=== PATIENT | male | born 1970 | race Caucasian/White ===

== ENCOUNTER 2023-04-21 21:14 | Observation (INO) | payer SELFPAY ==
[2023-04-21] VITALS (14 sets, daily range): BP systolic 126–137; BP diastolic 83–94; PULSE 53–66; RESP 18–26; TEMP 36.6; O2SAT 93–98; BMI 28.7
--- NOTE | 2023-04-21 21:33 | XR_ITS ---
The [address] [address] Patient Name: MACHELLE RUBY MRN: [id number] date: 1970 Sex: M Assigned Patient Location: ED.MAIN Current Patient Location: ER Accession/Order Number: [id number] Exam Date: 04/21/2023 22:03 Report Date: 04/21/2023 22:53 At the request of: BETTIE VARMA Procedure: XR chest 1V EXAM: XR chest 1V HISTORY: chest pain COMPARISON: Chest radiograph dated 07/19/2020. TECHNIQUE: One view of the chest was obtained. FINDINGS: The cardiac silhouette is normal in size. There is mild linear atelectasis and/or scarring at the left lung base. There is no significant pneumothorax or pleural effusion. No acute osseous abnormality is seen. XR/XR chest 1V IMPRESSION: 1. No acute cardiopulmonary abnormality. Electronically authenticated by: Yaneth MURGUIA Date: 04/21/2023 22:53
--- NOTE | 2023-04-21 21:33 | ECG_ITS ---
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
[2023-04-21 21:51] LABS: Basophils Absolute Auto 0.1 10^3/uL (0.0-0.1); Basophils Percent Auto 1.4 % (0.2-2.0); Eosinophils Absolute Auto 0.4 10^3/uL (0.0-0.7); Eosinophils Percent Auto 6.5 % (0.9-7.0); Hematocrit 45.7 % (42.0-54.0); Hemoglobin 15.9 g/dL (14.0-18.0); Lymphocytes Percent Auto 34.2 % (20.5-60.0); Mean Corpuscular HGB Conc 34.8 g/dL (29.9-35.2); Mean Corpuscular Hemoglobin 30.8 pg (25.9-34.0); Mean Corpuscular Volume 88.4 fL (80.0-94.0); Mean Platelet Volume 9.4 fL (9.5-13.5); Monocytes Absolute Auto 0.5 10^3/uL (0.3-0.8); Monocytes Percent Auto 8.1 % (1.7-12.0); Neutrophils Absolute Auto 2.8 10^3/uL (1.4-6.5); Neutrophils Percent Auto 49.8 % (43.0-75.0); Platelet Count 221 10^3/uL (150-450); Red Blood Count 5.17 10^6/uL (4.70-6.10); Red Cell Distribution Width 11.7 % (11.0-15.0); White Blood Count 5.7 10^3/uL (4.0-11.0)
[2023-04-21 22:06] LABS: Anion Gap 14.9; BUN Creatinine Ratio 12.2; Calcium 8.6 mg/dL (8.5-10.1); Carbon Dioxide 24.7 mmol/L (21.0-32.0); Chloride 103 mmol/L (98-107); Estimated GFR (African America >60 (>=60); Estimated GFR (Non-African Ame >60 (>=60); Glucose 103 mg/dL (74-106); Potassium 3.6 mmol/L (3.5-5.1); Sodium 139 mmol/L (136-145); Troponin I High Sensitivity 14.4 pg/mL (4.0-76.1)
[2023-04-21 22:08] LABS: D Dimer <0.19 mg/L FEU (<=0.59)
--- NOTE | 2023-04-21 23:13 | W.PM.TELEPN ---
Progress Note: Subjective Subjective Interval history: The patient is a 52yo man with a PMHx of Tobacco use and possible small UT when he was 27yo who presented to the ED with chest pain. He states that he has had intermittent short episodes of chest pain for some time now but they have not been that painful so he has ignored them. Yesterday he was sitting down watching TV when he started to have sharp chest pain. He remarked that it was non-radiating and there were no other symptoms like SOB, diaphoresis, nausea, palpitations, fevers, chills. He admits to smoking 1ppd but he is cutting down. He also drinks 6-8 beers daily and denies any history of withdrawals. He also smokes cannabis daily. Exam Constitutional Vital Signs, click to edit/add: Last Vital Signs Temp 97.9 F 04/21/23 21:25 Pulse 56 L 04/21/23 22:00 Resp 23 04/21/23 22:00 BP 137/94 H 04/21/23 21:30 Pulse Ox 93 L 04/21/23 22:00 Common normals: no apparent distress, average body habitus, oriented x3, no limitations, healthy appearing, alert and well nourished [facility] Common normals: normocephalic, head/scalp atraumatic, hearing grossly normal bilaterally and external ears normal Eye Common normals: PERRL and EOMs intact bilaterally Neck & C-Spine Common normals: full ROM and no lymphadenopathy Chest Common normals: inspection of chest normal Respiratory Common normals: normal respiratory effort, no retractions and no use of accessory muscles Effort & inspection: audible wheezes Cardio Common normals: no JVD, regular rate, regular rhythm, S1 normal heart sound, S2 normal heart sound, no gallops, no clicks, no murmurs and peripheral pulses 2+ throughout GI Common normals: Normal to inspection, nondistended, normoactive bowel sounds present, soft to palpation, non-tender, no hepatosplenomegaly and no masses Extremity Common normals: normal to inspection and full ROM Psych Common normals: mental status grossly normal, thought process normal, cooperative, affect normal, speech normal, activity/motor behavior normal, denies hallucinations, denies homicidal ideation and denies suicidal ideation Progress Note: Objective Labs Labs: Short CBC 11/21/23 Range/Units 21:30 WBC 5.7 (4.0-11.0) 10^3/uL Hgb 15.9 (14.0-18.0) g/dL Hct 45.7 (42.0-54.0) % Plt Count 221 (150-450) 10^3/uL BMP 04/21/23 21:30 Sodium 139 Potassium 3.6 Chloride 103 Carbon Dioxide 24.7 BUN 12.0 Creatinine 0.98 Glucose 103 Calcium 8.6 Progress Note: A&P Assessment and Plan (1) Chest pain: Assessment and Plan: The patient presented with chest pain and has a reported history of UT in 1996. His EKG has no ST elevations, his troponin is negative. - observation status - c/w telemetry - trend troponin - c/w aspirin - echo stress test in AM - check lipid panel (2) Tobacco abuse: Assessment and Plan: - nicotine patch - cessation advice given (3) Alcohol abuse: Assessment and Plan: He admits to drinking 6-8 beers daily. - watch for possible withdrawals Telemedicine Attestation Telemedicine Attestation I conducted this encounter from [place] via secure live, [id number] video conference with the patient, located at [facility] with Colette. Prior to the interview, the risks and benefits of telemedicine were discussed with the patient and verbal consent was obtained.
[2023-04-22] VITALS (8 sets, daily range): BP systolic 133; BP diastolic 86; PULSE 56–75; RESP 1; TEMP 36.8; O2SAT 63–93; BMI 26.0
[2023-04-22] MEDS: ASPIRIN 81 MG TAB.CHEW PO (05:18)
[2023-04-22 05:36] LABS: Basophils Absolute Auto 0.1 10^3/uL (0.0-0.1); Eosinophils Absolute Auto 0.4 10^3/uL (0.0-0.7); Hematocrit 45.4 % (42.0-54.0); Hemoglobin 15.3 g/dL (14.0-18.0); Immature Granulocytes Abs Auto 0.01 10^3/uL (0.00-0.03); Immature Granulocytes Pct Auto 0.2 % (0.0-0.5); Lymphocytes Absolute Auto 1.4 10^3/uL (1.2-3.8); Mean Corpuscular HGB Conc 33.7 g/dL (29.9-35.2); Mean Corpuscular Hemoglobin 30.2 pg (25.9-34.0); Mean Corpuscular Volume 89.5 fL (80.0-94.0); Mean Platelet Volume 9.8 fL (9.5-13.5); Monocytes Absolute Auto 0.6 10^3/uL (0.3-0.8); Neutrophils Absolute Auto 2.3 10^3/uL (1.4-6.5); Neutrophils Percent Auto 47.8 % (43.0-75.0); Platelet Count 190 10^3/uL (150-450); Red Blood Count 5.07 10^6/uL (4.70-6.10); Red Cell Distribution Width 11.9 % (11.0-15.0); White Blood Count 4.8 10^3/uL (4.0-11.0)
[2023-04-22 05:48] LABS: Anion Gap 11.1; Calcium 8.5 mg/dL (8.5-10.1); Carbon Dioxide 27.9 mmol/L (21.0-32.0); Chloride 105 mmol/L (98-107); Estimated GFR (African America >60 (>=60); Estimated GFR (Non-African Ame >60 (>=60); Glucose 98 mg/dL (74-106); Magnesium 2.1 mg/dL (1.8-2.4); Sodium 140 mmol/L (136-145)
[2023-04-22 06:05] LABS: Troponin I High Sensitivity 14.4 pg/mL (4.0-76.1)
--- NOTE | 2023-04-22 07:41 | CA_ITS ---
Patient Name Site Name MACHELLE RUBY The [facility] No Medical Record Number Age Sex Date Time [id number] [facility]:[id number] 52 M 04/22/2023 09:01 At the Request Of Milana Ware ECHOCARDIOGRAM REPORT PROCEDURE: CA ECHO DOPPLER COMPLETE INDICATIONS: Chest pain COMPARISON: None. DESCRIPTION: COMPLETE ECHOCARDIOGRAM Real-time transthoracic echocardiography with 2D, M-mode, spectral and color flow Doppler performed. QUALITY: Technical quality was good. LEFT VENTRICLE: Normal chamber size. Mild concentric left ventricular hypertrophy. Global left ventricular systolic function is normal. LV EF: Visual estimation of left ventricular ejection fraction is 55% DIASTOLIC: Normal diastolic function. ATRIAL SEPTUM: LEFT ATRIUM: Normal chamber size. RIGHT ATRIUM: Normal chamber size. RIGHT VENTRICLE: Normal chamber size. Normal right ventricular systolic function. TRICUSPID VALVE: Normal mobility and thickness. No stenosis with trivial regurgitation. No evidence of pulmonary hypertension. RVSP 32 mmHg MITRAL VALVE: Normal mobility and thickness. No evidence of mitral valve stenosis. There is no mitral annular calcification. Trivial mitral regurgitation. AORTIC VALVE: Normal trileaflet appearance. No visible sclerosis. Normal leaflet mobility. No evidence of aortic valve stenosis. No aortic regurgitation. AORTIC ROOT: Normal diameter and appearance. PULMONIC VALVE: Normal thickness and mobility. No stenosis. No regurgitation. PERICARDIUM: No evidence of pericardial effusion. IVC: Collapses with inspirations. Normal size. PLEURA: CONCLUSION: 1. Mild concentric left ventricular hypertrophy with normal systolic function. LVEF is 55%. 2. Normal right ventricular size and systolic function. 3. Normal diastolic function. 4. No significant valvular dysfunction. 5. Normal right-sided pressures. 6. No pericardial effusion. Adult Echocardiography Procedure Report Left Ventricle LVEDD (3.7 - 5.6 cm): 5.47 cm LVESD (2.2 - 4.0 cm): 3.98 cm LVIVS thickness (0.6 - 1.2 cm): 1.29 cm LVPW thickness (0.5 - 1.0 cm): 1.14 cm e': 0.09 m/s E - e': 6.62 LVOT Max Gradient: 3.41 mm[Hg] LVOT Area (cm2): 0.92 m/s Peak Velocity (LVOT): 0.92 m/s Mean Velocity (LVOT): 0.63 m/s LVOT Diameter 2.32 cm Left Ventricular Ejection Fraction: 55.85 % Left Atrium LA Volume Index (2D A2C): 37.96 ml/m2 Left Atrium Systolic Dimension: 4.11 cm Mitral Valve MV E to A Ratio: 0.82 Mitral Valve A-Wave Peak Velocity: 0.75 m/s Mitral Valve E-Wave Peak Velocity: 0.61 m/s Right Ventricle RV Internal Diastolic Dimension: 3.52 cm Aorta AO Root Diam: 3.29 cm Ascending Ao Diam: 3.26 cm Aortic Valve AoV Area (Peak Himanshu): 2.60 cm2, 2.60 cm2 AoV Area (VTI): 2.44 cm2, 2.44 cm2 Peak Velocity(Antegrade Flow): 1.50 m/s Peak Gradient(Antegrade Flow): 8.95 mm[Hg] Mean Velocity(Antegrade Flow): 0.99 m/s Mean Gradient(Antegrade Flow): 4.63 mm[Hg] Velocity Time Integral: 34.61 cm Tricuspid Valve Peak Velocity (Regurgitant Flow): 2.39 m/s, 2.68 m/s, 2.51 m/s Pulmonic Valve Mean Gradient: 2.11 mm[Hg] Mean Velocity: 0.68 m/s Peak Velocity: 0.98 m/s, 1.04 m/s Peak Gradient: 4.35 mm[Hg], 3.87 mm[Hg] Right Atrium Right Atrium Systolic Pressure: 58.26 ml, 58.26 ml Dictated by: Regino Baires M.D. on 04/22/2023 at 18:27 Approved by: Regino Baires M.D. on 04/22/2023 at 18:30
[2023-04-22 08:23] LABS: Troponin I High Sensitivity 14.4 pg/mL (4.0-76.1)
--- NOTE | 2023-04-22 08:52 | CM.NOTE ---
Patient requested to speak w someone regarding his self pay status. Spoke to financial counselor, Amy and someone will reach out to him.
--- NOTE | 2023-04-22 09:18 | CM.NOTE ---
Spoke with Jerald regarding insurance. At this time he has no insurance benefits. Patient Financial Services to speak with Mr. Woodward.
[2023-04-22] MEDS: THIAMINE MONONITRATE (VIT B1) 100 MG TABLET PO (10:07)
[2023-04-22] MEDS: MULTIVITAMIN TABLET 1 TAB PO (10:07)
[2023-04-22] MEDS: FOLIC ACID 1 MG TABLET PO (10:08)
--- NOTE | 2023-04-22 12:20 | P.HP_ITS ---
Brief with input and findings and history from nurse practitioner. Patient was up in chair talking. Without issue. Ambulated in room without issue. Echocardiogram reviewed. Patient is stable for discharge to home with follow-up with PCP for outpatient stress testing H&P: HPI History of Present Illness Chief complaint: ATYPICAL CHEST PAIN Narrative: SHORT STAY SUMMARY Date/time of exam 04/22/23 7341 This is a 52-year-old male patient with a past medical history including chronic tobacco dependence and EtOH abuse, with only significant past medical history including reported mild heart attack approximately 25 years ago. The patient does not take any home medications at baseline. He reported to the ED yesterday evening complaining of an episode of chest pain that had resolved. He reports intermittent left distal chest wall/epigastric discomfort over the last 2 weeks. He had a brief episode around 8:00 last night that was sharp and intense but self resolved and he was able to fall asleep. He woke up about an hour later and decided to present to the ED regarding his chest discomfort which had already resolved. Work-up in the ED was benign with negative troponins x2 and EKG without evidence of acute ischemic changes. All his labs were WNL. He was admitted to [facility] for further cardiac monitoring. This morning the patient is sitting up in bed and continues to report that his chest pain is completely resolved. He describes the pain as sharp, without r adiation, palpitations, pleuritic pain, or associated dizziness, SOB, diaphoresis or nausea. He reports that it may have been gas as he frequently has gas pain discomfort in his abdomen and the location of his pain was the distal left chest wall/epigastric area. He also reports eating a lot of salt and greasy food which may have contributed to dyspepsia. Serial cardiac enzymes have remained completely negative and a 2D echo obtained this morning, although official cardiology report is still pending, did not evidence any significant finding on preliminary report. As the patient's chest pain is completely resolved and our work-up today has been negative he is being discharged home in stable condition. He should follow-up with his PCP in 3 to 5 days and an outpatient stress test should be considered in light of his reported cardiac history. Review of Systems ROS Status of ROS 10 or more systems reviewed and unremarkable except as noted in history and below [facility] Medical History (Updated 04/22/23 @ 12:18 by Milana Ware NP) Alcohol abuse ?F10.10 - Alcohol abuse, uncomplicated (ICD-10) Heart attack ?I21.9 - Acute myocardial infarction, unspecified (ICD-10) Tobacco abuse ?Z72.0 - Tobacco use (ICD-10) Family History (Updated 04/22/23 @ 00:33 by Colette Arevalo RN) Mother Family history of myocardial infarction Family history of CHF (congestive heart failure) Family history of hypertension Family history of stroke Social History (Updated 04/22/23 @ 00:36 by Colette Arevalo RN) Within the past year, how often did you have a drink containing alcohol: 4 or more times a week Within the past year, how many standard drinks containing alcohol did you have on a typical day: 5 or 6 Within the past year, how often did you have six or more drinks on one occasion: monthly Total score: 6 Score interpretation: A score of 4 or more indicates drinking is likely to affect patient's safety. Smoking status: Current every day smoker Non-prescribed substance use: cannabis (any form) Previous occupational history: factory Known occupational exposures/hazards details: chemical dust Highest level of school completed/degree received: 10th grade Are you now , , , , never or living with a partner: living with partner In a typical week, how many times do you talk on the telephone with family, friends, or neighbors: 3 or more times per week How often do you get together with friends or relatives: once per week How often do you attend uatsdin or pentecostal services: never Do you belong to any clubs or organizations such as uatsdin groups unions, fraternal or athletic groups, or school groups: no Total score: 2 Score interpretation: A score of greater than or equal to 2 indicates the lowest level of social isolation. Little interest or pleasure in doing things: not at all Feeling down, depressed, or hopeless: not at all Feel stressed/tense/nervous/anxious/difficulty sleeping: not at all Gender Identity: male Meds Home Medications and Allergies Allergies Allergy/AdvReac Type Severity Reaction Status Date / Time No Known Drug Allergies Allergy Verified 04/21/23 21:32 Exam Constitutional Vital Signs, click to edit/add: Last Vital Signs Temp 98.3 F 04/22/23 00:40 Pulse 61 04/22/23 10:00 Resp 1 L 04/22/23 00:40 BP 133/86 04/22/23 00:40 Pulse Ox 93 L 04/22/23 00:40 O2 Del Method Room Air 04/22/23 00:40 Common normals: no apparent distress, oriented x3, alert and well nourished General appearance: cooperative Orientation/consciousness: Yes awake [place] Common normals: normocephalic, head/scalp atraumatic, hearing grossly normal bilaterally, external nose normal and moist oral mucous membranes Eye Common normals: PERRL, EOMs intact bilaterally, conjunctivae normal and no scleral icterus Alignment: alignment normal Eyelid: eyelids normal Neck & C-Spine Common normals: full ROM, supple and no JVD Chest Common normals: inspection of chest normal Chest: symmetrical chest wall rise Respiratory Common normals: normal respiratory effort, no retractions, no use of accessory muscles and clear to auscultation bilaterally Effort & inspection: able to speak in complete sentences Cardio Common normals: no JVD, regular rate, regular rhythm, S1 normal heart sound, S2 normal heart sound, no gallops, no clicks, no murmurs, no rub and peripheral pulses 2+ throughout GI Common normals: Normal to inspection, nondistended, normoactive bowel sounds present, soft to palpation, non-tender, no hepatosplenomegaly, no masses and no bruits Bladder/kidney exam: bladder normal to palpation Back & Pelvis Common normals: thoracic and lumbar spine normal to inspection Extremity Common normals: normal capillary refill and no pedal edema General: normal exam except as noted; no clubbing and no cyanosis Neuro Cristina Coma Scale: GCS not evaluated Common normals: CN's II-XII intact bilaterally, moves all extremities, no focal motor deficits and no sensory deficits noted Speech: speech normal Psych Common normals: mental status grossly normal, thought process normal, affect normal and activity/motor behavior normal Results Labs Labs: Short CBC 04/21/23 04/22/23 Range/Units 21:30 04:52 WBC 5.7 4.8 (4.0-11.0) 10^3/uL Hgb 15.9 15.3 (14.0-18.0) g/dL Hct 45.7 45.4 (42.0-54.0) % Plt Count 221 190 (150-450) 10^3/uL BMP 04/21/23 04/22/23 21:30 04:52 Sodium 139 140 Potassium 3.6 4.0 Chloride 103 105 Carbon Dioxide 24.7 27.9 BUN 12.0 13.0 Creatinine 0.98 1.00 Glucose 103 98 Calcium 8.6 8.5 Laboratory Tests 04/21/23 04/22/23 04/22/23 21:30 04:52 08:00 Troponin I High Sens 14.4 14.4 14.4 Pulse Oximetry Attestation: I have reviewed the pertinent pulse oximetry results. ECG Interpretation: Interpretive Statements 1100 Sinus rhythm 2440 Incomplete right bundle branch block 9130 borderline ECG No previous ECG available for comparison Imaging Chest x-ray: Attestation: I have reviewed the pertinent imaging results. Radiologist's impression: IMPRESSION: 1. No acute cardiopulmonary abnormality. Assessment and Plan Assessment and Plan (1) Atypical chest pain: Assessment and Plan: SUBACUTE/RESOLVED * Atypical pain, likely dyspepsia or GERD based on presentation, but remote reported cardiac history * Resolved * Serial cardiac enzymes - neg x 3 * EKG - no acute ischemic changes * 2D Echo to r/o WM, CHF, or valvular abnormalities * Official cardiac read pending - prelim report unremarkable * D/C home - follow up w/ PCP and consider outpatient stress testing (2) Tobacco abuse: Assessment and Plan: CHRONIC * Advised tobacco and marijuana cessation (3) Alcohol abuse: Assessment and Plan: CHRONIC * Advised significant reduction in daily EtOH use - limit 2-3 per day at most
== END 2023-04-22 12:42 | disposition home or self-care (01) ==
LOC: ER 23:15 → MS 04-22 00:17
PROVIDERS: Internal Medicine; Admitting Provider Family Medicine; Emergency Provider Internal Medicine; Visit Provider Nurse Practitioner
DX: R07.89 Other chest pain (principal); I25.2 Old myocardial infarction; F10.10 Alcohol abuse, uncomplicated; F17.210 Nicotine dependence, cigarettes, uncomplicated
CPT/HCPCS: 36415; 71045; 80048; 83735; 84484; 85025; 85378; 93005; 93306; 99285; G0378

== ENCOUNTER 2024-08-13 22:43 | Emergency (ER) | payer SELFPAY ==
[2024-08-13] VITALS (10 sets, daily range): BP systolic 129–172; BP diastolic 84–113; PULSE 55–64; TEMP 36.4; O2SAT 93–98; BMI 25.5
--- OUTSIDE RECORDS SUMMARY | 2024-08-13 22:48 | XMS_ITS | CCD ---
Author Organization [facility] Inform ion Partnership [facility] Care Team Providers Care Traffic Checker Name Role Phone TAYLOR KESSLER Admitting Unavailable MISC, DOCTOR Primary Care Unavailable TIMOTHY BASSETT Consulting Unavailable TAYLOR KESSLER Attending Unavailable Julio Alex Consulting Unavailable TAYLOR KESSLER Attending Unavailable TAYLOR KESSLER Consulting Unavailable TAYLOR KESSLER Admitting Unavailable MISC, DOCTOR Primary Care Unavailable JERAD CABRERA Consulting Unavailable Darlyn Jeffrey Unavailable No Pcp, No Pcp Primary Care Provider Unavailabl e Medications Current Medications Medication Drug Class(es) Dates Sig (Normalized) Sig (Original) clotrimazole 10 mg/ml topical cream (1 source) Azole Antifungal Start: 08-20-2023 Clotrimazole Active 1 APPLIC TOPICAL Twice daily 30 August 20, 2023 12:00am Problems Active Problems Problem Classification Problem Date Documented Da te Episodic/Chronic Conditions associated with dizziness or vertigo (5 sources) Dizziness and giddiness; Translations: [Labyrinthitis, unspecified ear] Onset: 07-19-2020 Episodic Substance-related disorders (1 source) Nicotine dependence, cigarettes, uncomplicated; Translations: [NICOTINE DEPEND CIGARETTES UNCOMP] Onset: 07-23-2020 Chronic Past or Other Problems Problem Classification Problem Date Documented Da te Episodic/Chronic Immunizations and screening for infectious disease (1 source) Contact with and (suspected) exposure to other viral communicable diseases; Translations: [Contact with and (suspected) exposure to other viral communicable diseases Z20.828] Onset: 03-13-2021 Resolved: 03-13-2021 Episodic Other connective tissue disease (1 source) Olecranon bursitis, right elbow; Translations: [OLECRANON BURSITIS RIGHT ELBOW] Onset: 12-19-2019 Episodic Other non-traumatic joint disorders (3 sources) Effusion, right elbow; Translations: [EFFUSION RIGHT ELBOW] Onset: 12-15-2019 Episodic Viral infection (1 source) COVID-19; Translations: [COVID-19 U07.1] Onset: 03-13-2021 Resolved: 03-13-2021 Results Test Name Value Interpretation Reference Range Facility COVID Quick Testingon 2020 Result Positive [facility] Other CARDIAC TAYLOR ADMITon 021 CK [Catalytic activity/Vol] 148 U/L Normal 55-170 [facility] Comment on above: Performed By: #### C LYNDON, CMP #### [facility] [address] [place], [place] [address] Prabha Roz CK.MB [Mass/Vol] 3.41 ng/mL Critically high <=2.37 [facility] Comment on above: Result Comment: test repeated critical value verified Performed By: #### C LYNDON, CMP #### [facility] [address] [place], [place] [id number] Parbha Roz HSTROP 25.5 pg/mL Normal 4.0-42.2 [facility] Comment on above: Result Comment: CUT- OFF POINTS HAVE BEEN ESTABLISHED BASED ON THE FOURTH UNIVERSAL DEFINITIONS OF MYOCARDIAL INFARCTION. THE UPPER REFERENCE LIMIT (URL) OF TROPONIN, DEFINED THE 99TH PERCENTILE OF cTnI DISTRIBUTION IN A REFERENCE POPULATION, HAS BEEN CONFIRMED THE DECISION THRESHOLD FOR TX DIAGNOSIS. Performed By: #### C LYNDON, CMP #### [facility] [address] [place], [place] [address] Prabha Roz NICOLE 68.0 ng/mL Normal <=121.0 [facility] Comment on above: Performed By: #### C LYNDON, CMP #### [facility] [address] [place], [place] [address] Prabha Roz CBC AUTO DIFFon 07-19-2020 Basophils (Bld) [#/Vol] 0.1 103/ul Normal 0.0-0.1 [facility] Comment on above: Performed By: #### C BC #### [facility] [address] [place], [place] [address] Prabha Roz Basophils/100 WBC (Bld) 0.9 % Normal 0.2-2.0 [facility] Comment on above: Performed By: #### C BC #### [facility] [address] [place] [address] Prabha Roz Eosinophils (Bld) [#/Vol] 0.2 103/ul Normal 0.0-0.7 [facility] Comment on above: Performed By: #### C BC #### [facility] [address] [place], [place] [phone] Prabha Roz Eosinophils/100 WBC (Bld) 3.1 % Normal 0.9-7.0 [facility] Comment on above: Performed By: #### C BC #### [facility] [address] [place] [address] Prabha Roz Erythrocyte distribution width (RBC) [Ratio] 11.4 % Normal 11.0-15.0 [facility] Comment on above: Performed By: #### C BC #### [facility] [address] [place] [address] Prabha Roz Hematocrit (Bld) [Volume fraction] 44.5 % Normal 42.0-54.0 [facility] Comment on above: Performed By: #### C BC #### [facility] [address] [place] [address] Prabha Roz Hemoglobin (Bld) [Mass/Vol] 15.7 g/dL Normal 14.0-18.0 [facility] Comment on above: Performed By: #### C BC #### [facility] [address] [place] [address] Prabha Roz IG # 0.01 10e3/ul Normal 0.00-0.03 [facility] Comment on above: Performed By: #### C BC #### [facility] [address] [place] [address] Prabha Roz IG % 0.1 % Normal 0.0-0.5 [facility] Comment on above: Performed By: #### C BC #### [facility] [address] [place], [place] [phone] Prabha Roz Lymphocytes (Bld) [#/Vol] 1.2 103/ul Normal 1.2-3.8 [facility] Comment on above: Performed By: #### C BC #### [facility] [address] [place], [place] [address] Prabha Roz Lymphocytes/100 WBC (Bld) 17.3 % Critically low 20.5-60.0 [facility] Comment on above: Performed By: #### C BC #### [facility] [address] [place], [place] [address] Prabha Roz MANUAL DIFF REQ NO Normal [facility] Comment on above: Performed By: #### C BC #### [facility] [address] [place], [place] [address] Prabha Roz MCH (RBC) [Entitic mass] 30.6 pg Normal 25.9-34.0 [facility] Comment on above: Performed By: #### C BC #### [facility] [address] [place], [place] [phone] Prabha Roz MCHC (RBC) [Mass/Vol] 35.3 g/dL Critically high 29.9-35.2 [facility] Comment on above: Performed By: #### C BC #### [facility] [address] [place] [address] Prabha Roz MCV (RBC) [Entitic vol] 86.7 fL Normal 80.0-94.0 [facility] Comment on above: Performed By: #### C BC #### [facility] [address] [place] [address] Prabha Roz Monocytes (Bld) [#/Vol] 0.7 103/ul Normal 0.3-0.8 [facility] Comment on above: Performed By: #### C BC #### [facility] [address] [place], [place] [address] Prabha Roz Monocytes/100 WBC (Bld) 10.2 % Normal 1.7-12.0 [facility] Comment on above: Performed By: #### C BC #### [facility] [address] [place], [place] [address] Prabha Roz Neutrophils (Bld) [#/Vol] 4.8 103/ul Normal 1.4-6.5 [facility] Comment on above: Performed By: #### C BC #### [facility] [address] [place], [place] [address] Prabha Courtney Neutrophils/100 WBC (Bld) 68.4 % Normal 43.0-75.0 [facility] Comment on above: Performed By: #### C BC #### [facility] [address] [place], [place] [address] Prabhakamar Courtney Platelet mean volume (Bld) [Entitic vol] 9.6 fL Normal 9.5-13.5 [facility] Comment on above: Performed By: #### C BC #### [facility] [address] [place] [address] Prabhakamar Courtney Platelets (Bld) [#/Vol] 237 103/ul Normal 150-450 [facility] Comment on above: Performed By: #### C BC #### [facility] [address] [place] [address] Prabha Courtney RBC (Bld) [#/Vol] 5.13 106/ul Normal 4.70-6.10 [facility] Comment on above: Performed By: #### C BC #### [facility] [address] [place] [address] Prabha Courtney WBC (Bld) [#/Vol] 7.0 103/ul Normal 4.0-11.0 [facility] Comment on above: Performed By: #### C BC #### [facility] [address] [place] [address] HEAD WO CONon 07-19-[address] CT HEAD WO CON CT BRAIN WITHOUT CONTRAST HISTORY: BENIGN PAROXYSMAL VERTIGO, UNSPECIFIED EAR. COMPARISON: None available. TECHNIQUE: Helical CT images were acquired from the skull base to the vertex without the use of intravenous contrast. Dose reduction techniques were achieved by using automated exposure control and/or adjustment of mA and/or kV according to patient size and/or use of iterative reconstruction technique. FINDINGS: BRAIN PARENCHYMA/CSF SPACES: Ventricles are normal in size for age. There is no hemorrhage, mass effect or midline shift. There are no other significant findings. PARANASAL SINUSES: Clear. SKULL BASE AND CALVARIUM: Normal. EXTRACRANIAL SOFT TISSUES: Normal. IMPRESSION: Normal noncontrast CT brain. Electronically authenticated by: JERAD CABRERA Date: 2020-07-19 00:54 Normal [facility] PROF 14(COMP METB)on 021 Albumin [Mass/Vol] 4.1 g/dL Normal 3.5-5.0 [facility] Comment on above: Performed By: #### Lupillo HANEY, CMP #### [facility] [address] [place] [id number] Prabha Roz Albumin/Globulin [Mass ratio] 1.4 {ratio} Normal [facility] Comment on above: Performed By: #### Lupillo HANEY, CMP #### [facility] [address] [place] [id number] Prabha Roz ALP [Catalytic activity/Vol] 99 U/L Normal 38-126 [facility] Comment on above: Performed By: #### Lupillo HANEY, CMP #### [facility] [address] [place] [phone] Prabha Roz ALT [Catalytic activity/Vol] 33 U/L Normal 21-72 [facility] Comment on above: Performed By: #### Lupillo HANEY, CMP #### [facility] [address] [place] [phone] Prabha Roz Anion gap [Moles/Vol] 11.6 mmol/L Normal [facility] Comment on above: Performed By: #### Lupillo HANEY, CMP #### [facility] [address] [place] [phone] Prabha Roz AST [Catalytic activity/Vol] 20 U/L Normal 17-59 [facility] Comment on above: Performed By: #### Lupillo HANEY, CMP #### [facility] [address] [place] [phone] Prabha Roz Bilirubin Ql (U) 0.4 mg/dL Normal 0.2-1.3 [facility] Comment on above: Performed By: #### Lupillo HANEY, CMP #### [facility] [address] [place] [id number] Prabha Roz Calcium [Mass/Vol] 9.2 mg/dL Normal 8.4-10.2 [facility] Comment on above: Performed By: #### C LYNDON, CMP #### [facility] [address] [place] [address] Prabha Roz Chloride [Moles/Vol] 106 mmol/L Normal 98-107 [facility] Comment on above: Performed By: #### C LYNDON, CMP #### [facility] [address] [place] [address] Prabha Roz CO2 [Moles/Vol] 27.4 mmol/L Normal 22.0-30.0 [facility] Comment on above: Performed By: #### C LYNDON, CMP #### [facility] [address] [place] [address] Prabha Roz Creatinine [Mass/Vol] 0.95 mg/dL Normal 0.66-1.25 [facility] Comment on above: Performed By: #### C LYNDON, CMP #### [facility] [address] [place] [address] Prabha Roz EGFR-AF [place]IZ[place] >60 Normal >=60 [facility] Comment on above: Performed By: #### C LYNDON, CMP #### [facility] [address] [place] [address] Prabha Roz EGFR-NON AF [place]IZ[place] >60 Normal >=60 [facility] Comment on above: Performed By: #### C LYNDON, CMP #### [facility] [address] [place] [address] Prabha Roz Globulin (S) [Mass/Vol] 2.9 g/dL Normal [facility] Comment on above: Performed By: #### C LYNDON, CMP #### [facility] [address] [place] [address] Prabha Roz Glucose [Mass/Vol] 112 mg/dL Critically high 74-106 [facility] Comment on above: Performed By: #### C LYNDON, CMP #### [facility] [address] [place] [address] Prabha Roz Potassium [Moles/Vol] 4.0 mmol/L Normal 3.4-5.0 [facility] Comment on above: Performed By: #### C MADM, CMP #### [facility] [address] [place] [id number] Prabha Roz Protein [Mass/Vol] 7.0 g/dL Normal 6.1-8.2 [facility] Comment on above: Performed By: #### C MADM, CMP #### [facility] [address] [place] [id number] Prabha Roz Sodium [Moles/Vol] 141 mmol/L Normal 137-145 [facility] Comment on above: Performed By: #### C MADM, CMP #### [facility] [address] [place] [id number] Prabha Roz Urea nitrogen [Mass/Vol] 14.0 mg/dL Normal 9.0-20.0 [facility] Comment on above: Performed By: #### C NIKITAM, CMP #### [facility] [address] [place], [place] [phone] Prabha Roz Urea nitrogen/Creatinin e [Mass ratio] 14.7 mg/mg Normal [facility] Comment on above: Performed By: #### C MADM, CMP #### [facility] [address] [place], [place] [phone] Prabha Roz TROPONIN, HIGH SENSITIVITYon 07-19-2020 HSTROP 21.8 pg/mL Normal 4.0-42.2 [facility] Comment on above: Result Comment: CUT- OFF POINTS HAVE BEEN ESTABLISHED BASED ON THE FOURTH UNIVERSAL DEFINITIONS OF MYOCARDIAL INFARCTION. THE UPPER REFERENCE LIMIT (URL) OF TROPONIN, DEFINED THE 99TH PERCENTILE OF cTnI DISTRIBUTION IN A REFERENCE POPULATION, HAS BEEN CONFIRMED THE DECISION THRESHOLD FOR TX DIAGNOSIS. Performed By: #### H STROPN #### [facility] [address] [place], [place] [phone] Prabha Roz XR CHEST 1 Von 07-19-2020 XR CHEST 1 V CHEST RADIOGRAPH: HISTORY: CHEST PAIN, UNSPECIFIED. COMPARISON: CT chest 08/31/18. TECHNIQUE: AP radiograph of was performed of the chest. FINDINGS: SUPPORT APPARATUS/POST-SURGI OUSMANE CHANGES: None. CARDIOMEDIASTINAL SILHOUETTE: Normal. AIRWAYS/LUNGS: Normal. PLEURAL SPACES: No pleural effusion or pneumothorax. BONES AND SOFT TISSUES: Mild dextroscoliosis of the thoracic spine. IMPRESSION: No acute cardiopulmonary process. Electronically authenticated by: JERAD CABRERA Date: 2020-07-19 00:31 Normal [facility] XR ELBOW RT MIN 3 VIEWSon XR ELBOW RT MIN 3 VIEWS EXAM: Right elbow HISTORY: Pain and swelling. TECHNIQUE: 3 views of the right elbow were obtained. FINDINGS: There is no evidence of fracture or dislocation. There are no suspicious bone lesions. The lateral view shows a tug enthesophyte at the insertion of the triceps tendon on the posterior olecranon. There is associated soft tissue thickening and swelling. Soft tissues are otherwise normal. IMPRESSION: No acute findings. Evidence of prior triceps tendinosis with associated overlying soft tissue thickening and swelling. Electronically authenticated by: JULIO ALEX Date: 2019-12-15 20:26 Normal [facility] Vital Signs Date Time Vital Sign Value Performing Clinician Facility 08-20-2023 18:13-0400 Body height 172.72 cm [facility] 08-20-2023 18:13-0400 Body mass index (BMI) [Ratio] 26.1 kg/m2 [facility] 08-20-2023 18:13-0400 Body temperature 98.2 [degF] [facility] 08-20-2023 18:13-0400 Body weight 78.01 kg [facility] 08-20-2023 18:13-0400 Heart rate 65 /min [facility] 08-20-2023 18:13-0400 Respiratory rate 18 /min [facility] 08-20-2023 18:13-0400 SaO2% (BldA) [Mass fraction] 97 % [facility] 03-13-2021 16:45-0400 Body height 172.72 cm Darlyn Jeffrey Other [facility] 03-13-2021 16:45-0400 Body mass index (BMI) [Ratio] 27.37 kg/m2 Darlyn Jeffrey Other [facility] 03-13-2021 16:45-0400 Body temperature 98.7 [degF] Darlyn Jeffrey Other [facility] 03-13-2021 16:45-0400 Body weight 81.65 kg Darlyn Jeffrey Other [facility] Other 03-13-2021 16:45-0400 Respiratory rate 18 /min Darlyn Jeffrey Other [facility] Other 03-13-2021 16:45-0400 SaO2% (BldA) [Mass fraction] 98 % Darlyn Jeffrey Other [facility] Other Encounters Encounter Date Encounter Type Care Provider Facility Start: 09-23-2023 End: 09-23-2023 Telephone encounter Catie Latham CMA [facility] Comment on above: Attribution Outreach Start: 08-20-2023 End: 08-20-2023 ambulatory [facility] Work Phone: Start: 08-20-2023 End: 08-20-2023 Patient encounter procedure [facility] Work Phone: Start: 03-13-2021 (URG) Urgent Care Visit Darlyn veliz [facility] Start: 07-19-2020 End: 07-19-2020 Patient encounter procedure TAYLOR KESSLER Facility:[facility] Start: 12-15-2019 End: 12-15-2019 Patient encounter procedure TAYLOR KESSLER Facility:[facility] Plan of Treatment Date Care Activity Detail Author [facility] Payers Date Payer Category Payer Unknown [employer] CHERRIE MONTERROSO [id number] 2017-Present [phone] [address] [place] [address] [id number] 1972 Unknown [id number] 1972 Unknown [id number] 1957 Self-pay Unknown [id number] Social History Date Type Detail Facility Start: 11-10-2018 End: 07-12-2020 Sex Assigned At [facility] Other Start: 08-20-2023 Tobacco smoking status [facility] Smoker (finding) [facility] Start: 1970 Sex Assigned At Male [facility] Tobacco smoking status [facility] Tobacco smoking consumption unknown [facility] Start: 11-10-2018 End: 07-12-2020 History of Social function [facility] Childcare Unknown [facility] Start: 1970 Sex assigned at Not on file P [facility] Note 09-23-2023 Telephone Encounter - Catie Latham CMA - 09/23/2023 11:17 AM EDT Note Date & Type Note Facility 09-23-2023 Miscellaneous Notes Formattin g of this note might be different from the original. EMPANELMENT OUTREACH Jerald Woodward has been contacted in effort to establish and/or re-establish care as a new patient with [facility]: Yes Outreach Date: September 23, 2023 Outreach Reason: Attribution Outreach Method: Telephone Outreach Attempt: First Attempt Outreach Outcome: Invalid Number New Patient Appointment: NA Attributed Provider: Jael Aguilar CNP Additional Comments: PCP is accepting new patients. Unable to reach patient. Letter sent regarding how to establish care. documented in this encounter [facility] Telephone encounter Note 09-23-2023 Telephone Encounter - Catie Latham CMA - 09/23/2023 11:17 AM EDT Note Date & Type Note Facility 09-23-2023 Telephone encount er Note EMPANELMENT OUTREACH Jerald Woodwrad has been contacted in effort to establish and/or re-establish care as a [facility]: Yes Outreach Date: September 23, 2023 Outreach Reason: Attribution Outreach Method: Telephone Outreach Attempt: First Attempt Outreach Outcome: Invalid Number New Patient Appointment: NA Attributed Provider: Jael Aguilar CNP Additional Comments: PCP is accepting new patients. Unable to reach patient. Letter sent regarding how to establish care. [facility] Evaluation note 03-13-2021 Note Date & Type Note Facility 03-13-2021 Evaluation note Encounter Date Diagnosis Assessment Notes Mar, Contact with and (suspected) exposure to other viral communicable diseases (ICD-10 - Z20.828) Mar, COVID-19 (ICD-10 - U07.1) Drink plenty fluids, get plenty of rest. Stop smoking. Take Tylenol or Motrin as needed for aches pains or fevers. You must self isolate for 10 days after the onset of your symptoms. Follow-up with family physician if no improvement in 2 to 3 days. Mar, Other Additional time spent conducting pre-visit phone call, screening for symptoms, instructions on social distancing, application and removal of PPE, and cleaning of examination room, equipment and supplies was preformed. Patient education given for testing methodology and results. Patient care instructions given in writting by [facility] At [facility] document. [facility] Other Evaluation note Note Date & Type Note Facility Evaluation note No assessment information availa [facility] Work Phone: History general Narrative - Reported Note Date & Type Note Facility History general Narrative - Reported Type Medical History pneumonia Hospitalization History pneumonia [facility] Other Instructions Note Date & Type Note Facility Instructions Not on filedocumented in this en counter [facility] Summary Purpose Family History Relationship Condition Age at Onset Recorded Date/T romana father Unknown Not Specified History of stroke Unknown Advance Directives Advance Directive Response Recorded Date/ Time Advance Directives No August 19, 024 6:03pm Chief Complaint and Reason for Visit Chief Complaint rash Additional Source Comments (unrecognized sect ion and content) No Status Records Found INFORMATION SOURCE (unrecogn ized section and content) DATE CREATED AUTHOR 07/24/2020 [facility] REASON FOR VISIT (unrecogniz ed section and content) Reason Onset Date Comments Attribution Outreach 09/23/2023 Care Teams (unrecognized sec tion and content) Team Status: Active Member Role Status Dates NON STAFF Primary Care Provider Active Team Status: Inactive Member Role Status Dates NON STAFF Primary Care Provider Active Start: August 20, 2023 End: August 20, 2023 Verenice Urban APRN Attending Provider Active Start: August 20, 2023 End: August 20, 2023 Traffic Checker Relationship Specialty Start Date End Date No Pcp[place] [address] PCP - General Family Medicine 07/19/18 Goals (unrecognized section and content) Goals may be documented in a n alternate section FOR RECORDS PERTAINING TO PATIENTS WHO ARE OR HAVE BEEN ENROLLED IN A CHEMICAL DEPENDENCY/SUBSTANCEABUSE PROGRAM, SOME INFORMATION MAY BE OMITTED. This clinical summary was aggregated from multiple sources. Caution should be exercised in using it in the provision of clinical care. This summary normalizes information from multiple sources, and as a consequence, information in this document may materially change the coding, format and clinical context of patient data. In addition, data may be omitted in some cases. CLINICAL DECISIONS SHOULD BE BASED ON THE PRIMARY CLINICAL RECORDS. [facility]. provides no warranty or guarantee of the accuracy or completeness of information in this document.
--- NOTE | 2024-08-13 23:05 | ECG_ITS ---
[facility] Test Date: 2024-08-13 Pat Name: MACHELLE RUBY Department: Room: - Gender: Male [employer] Officer: : 1970 Requested By: Order Number: [id number] Reading MD: YUMIKO PHILLIPS M.D. Measurements Intervals [place] Rate: 60 P: 52 SC: 174 QRS: 38 QRSD: 114 T: 25 QT: 388 QTc: 390 Interpretive Statements 1100 Sinus rhythm 2320 Nonspecific intraventricular conduction delay [address] depression 9130 Abnormal ECG Compared to ECG 04/21/2023 21:29:09 Intraventricular conduction delay now present ST (T wave) deviation now present Incomplete right bundle-branch block no longer present Electronically Signed On 08-14-2024 7:11:20 EDT by YUMIKO PHILLIPS M.D.
[2024-08-13 23:16] LABS: Basophils Absolute Auto 0.1 10^3/uL (0.0-0.1); Eosinophils Absolute Auto 0.3 10^3/uL (0.0-0.7); Eosinophils Percent Auto 5.2 % (0.9-7.0); Hematocrit 45.5 % (42.0-54.0); Hemoglobin 16.3 g/dL (14.0-18.0); Immature Granulocytes Abs Auto 0.01 10^3/uL (0.00-0.03); Immature Granulocytes Pct Auto 0.2 % (0.0-0.5); Lymphocytes Absolute Auto 1.9 10^3/uL (1.2-3.8); Lymphocytes Percent Auto 31.7 % (20.5-60.0); Mean Corpuscular HGB Conc 35.8 g/dL (29.9-35.2); Mean Corpuscular Hemoglobin 30.8 pg (25.9-34.0); Mean Platelet Volume 9.4 fL (9.5-13.5); Monocytes Absolute Auto 0.6 10^3/uL (0.3-0.8); Monocytes Percent Auto 9.5 % (1.7-12.0); Neutrophils Absolute Auto 3.1 10^3/uL (1.4-6.5); Neutrophils Percent Auto 52.4 % (43.0-75.0); Platelet Count 220 10^3/uL (150-450); Red Blood Count 5.29 10^6/uL (4.70-6.10); Red Cell Distribution Width 11.7 % (11.0-15.0)
[2024-08-13 23:36] LABS: Alanine Aminotransferase 58 U/L (16-63); Albumin Globulin Ratio 1.1; Albumin Level 3.9 g/dL (3.4-5.0); Alkaline Phosphatase 111 U/L (46-116); Aspartate Amino Transferase 29 U/L (15-37); BUN Creatinine Ratio 11.7; Bilirubin Total 0.4 mg/dL (0.2-1.0); Carbon Dioxide 26.9 mmol/L (21.0-32.0); Chloride 103 mmol/L (98-107); Estimated GFR (African America >60 (>=60 mL/min/1.73m^2); Estimated GFR (Non-African Ame >60 (>=60 mL/min/1.73m^2); Globulin 3.4 g/dL; Glucose 98 mg/dL (74-106); Potassium 3.9 mmol/L (3.5-5.1); Sodium 139 mmol/L (136-145); Total Protein 7.3 g/dL (6.4-8.2); Troponin I High Sensitivity 17.5 pg/mL (4.0-76.1)
--- NOTE | 2024-08-13 23:54 | ED_ITS ---
HPI - Chest Pain General Chief Complaint: Chest Pain Stated Complaint: CP Time Seen by Provider: 08/13/24 23:32 Source: patient Mode of arrival: walk-in Limitations: no limitations History of Present Illness HPI narrative: patient states after eating developed pain in his chest. felt like heart burn or indigestion. Denies past history of similar pain. Pain lasted at least 30 minutes. He became concerned and ask to be brought to the hospital. Arrives asymptomatic Risk Factors Coronary artery disease risk factors: smoking history Related Data Home Medications ?Medication ?Instructions ?Recorded ?Confirmed No Known Home Medications 08/13/24 08/13/24 Allergies Allergy/AdvReac Type Severity Reaction Status Date / Time No Known Drug Allergies Allergy Verified 08/13/24 22:56 Review of Systems ROS Status of ROS 10 or more systems reviewed and unremark able except as noted in history and below [facility] Medical History (Updated 08/14/24 @ 02:20 by Matthew Forman MD) Alcohol abuse ?F10.10 - Alcohol abuse, uncomplicated (ICD-10) Heart attack ?I21.9 - Acute myocardial infarction, unspecified (ICD-10) Tobacco abuse ?Z72.0 - Tobacco use (ICD-10) Family History (Updated 04/22/23 @ 00:33 by Colette Arevalo RN) Mother Family history of myocardial infarction Family history of CHF (congestive heart failure) Family history of hypertension Family history of stroke Social History (Updated 04/22/23 @ 00:36 by Colette Arevalo RN) Within the past year, how often did you have a drink containing alcohol: 4 or more times a week Within the past year, how many standard drinks containing alcohol did you have on a typical day: 5 or 6 Within the past year, how often did you have six or more drinks on one occasion: monthly Total score: 6 Score interpretation: A score of 4 or more indicates drinking is likely to affect patient's safety. Smoking status: Current every day smoker Non-prescribed substance use: cannabis (any form) Previous occupational history: factory Known occupational exposures/hazards details: chemical dust Highest level of school completed/degree received: 10th grade Are you now , , , , never or living with a partner: living with partner In a typical week, how many times do you talk on the telephone with family, friends, or neighbors: 3 or more times per week How often do you get together with friends or relatives: once per week How often do you attend jehovah's witness or yazidism services: never Do you belong to any clubs or organizations such as jehovah's witness groups unions, fraternal or athletic groups, or school groups: no Total score: 2 Score interpretation: A score of greater than or equal to 2 indicates the lowest level of social isolation. Little interest or pleasure in doing things: not at all Feeling down, depressed, or hopeless: not at all Feel stressed/tense/nervous/anxious/difficulty sleeping: not at all Gender Identity: male Exam Constitutional Vital Signs, click to edit/add: Last Vital Signs Temp 97.6 F 08/13/24 22:49 Pulse 58 L 08/14/24 02:10 Resp 19 08/14/24 02:10 BP 102/68 08/14/24 02:00 Pulse Ox 93 L 08/14/24 01:02 O2 Del Method Room Air 08/13/24 22:49 Common normals: no apparent distress, average body habitus, oriented x3, no limitations, healthy appearing, alert and well nourished [facility] Common normals: normocephalic and head/scalp atraumatic Respiratory Common normals: normal respiratory effort, no retractions, no use of accessory muscles and clear to auscultation bilaterally Cardio Common normals: regular rate, regular rhythm, S1 normal heart sound and S2 normal heart sound GI Common normals: Normal to inspection, nondistended, normoactive bowel sounds present, soft to palpation and non-tender Extremity Common normals: normal to inspection and full ROM Neuro Common normals: oriented x3, CN's II-XII intact bilaterally, moves all extremities and no focal motor deficits Psych Appearance: grossly normal Course Vital Signs Vital signs: Vital Signs Temperature 97.6 F 08/13/24 22:49 Pulse Rate 64 08/13/24 22:49 Respiratory Rate 16 08/13/24 22:49 Blood Pressure 168/113 H 08/13/24 22:49 Pulse Oximetry 97 08/13/24 22:49 Oxygen Delivery Method Room Air 08/13/24 22:49 Temperature 97.6 F 08/13/24 22:49 Pulse Rate 58 L 08/14/24 02:10 Respiratory Rate 19 08/14/24 02:10 Blood Pressure 102/68 08/14/24 02:00 Pulse Oximetry 93 L 08/14/24 01:02 Oxygen Delivery Method Room Air 08/13/24 22:49 MDM - Chest Pain MDM Narrative Medical decision making narrative: patient is a cigarette smoker. Presents with chest pain that occurred while eating. Eating increases likely randle that pain is GI related. Arrives asymptomatic. cxray neg. EKG with inverted T lead III and intraventricular conduction delay. Serial troponin neg. Patient remains asymptomatic. we discussed possibility of obs admission but he preferred to go home. Advised to see PCP next week. should return if pain recurs Lab Data Labs: Lab Results 08/13/24 08/14/24 Range/Units 22:13 01:05 WBC 6.0 (4.0-11.0) 10^3/uL RBC 5.29 (4.70-6.10) 10^6/uL Hgb 16.3 (14.0-18.0) g/dL Hct 45.5 (42.0-54.0) % MCV 86.0 (80.0-94.0) fL MCH 30.8 (25.9-34.0) pg MCHC 35.8 H (29.9-35.2) g/dL RDW 11.7 (11.0-15.0) % Plt Count 220 (150-450) 10^3/uL MPV 9.4 L (9.5-13.5) fL Neut % (Auto) 52.4 (43.0-75.0) % Lymph % (Auto) 31.7 (20.5-60.0) % [place] % (Auto) 9.5 (1.7-12.0) % Eos % (Auto) 5.2 (0.9-7.0) % Baso % (Auto) 1.0 (0.2-2.0) % Neut # (Auto) 3.1 (1.4-6.5) 10^3/uL Lymph # (Auto) 1.9 (1.2-3.8) 10^3/uL [place] # (Auto) 0.6 (0.3-0.8) 10^3/uL Eos # (Auto) 0.3 (0.0-0.7) 10^3/uL Baso # (Auto) 0.1 (0.0-0.1) 10^3/uL Abs Immat Gran (auto) 0.01 (0.00-0.03) 10^3/uL Imm/Tot Granulo (auto) 0.2 (0.0-0.5) % Sodium 139 (136-145) mmol/L Potassium 3.9 (3.5-5.1) mmol/L Chloride 103 (98-107) mmol/L Carbon Dioxide 26.9 (21.0-32.0) mmol/L Anion Gap 13.0 BUN 11.0 (7.0-18.0) mg/dL Creatinine 0.94 (0.70-1.30) mg/dL Est GFR ( Amer) >60 (>=60 mL/min/1.73m^2) Est GFR (Non-Af Amer) >60 (>=60 mL/min/1.73m^2) BUN/Creatinine Ratio 11.7 Glucose 98 (74-106) mg/dL Calcium 9.0 (8.5-10.1) mg/dL Total Bilirubin 0.4 (0.2-1.0) mg/dL AST 29 (15-37) U/L ALT 58 (16-63) U/L Alkaline Phosphatase 111 (46-116) U/L Troponin I High Sens 17.5 17.3 (4.0-76.1) pg/mL Total Protein 7.3 (6.4-8.2) g/dL Albumin 3.9 (3.4-5.0) g/dL Globulin 3.4 g/dL Albumin/Globulin Ratio 1.1 Discharge Plan Discharge Chief Complaint: Chest Pain Clinical Impression: Chest pain Patient Disposition: Home, Self-Care Prescriptions / Home Meds: No Action No Known Home Medications Print Language: Azeri Instructions: Chest Pain (ED) Additional Instructions: follow up with Dr Richardson next week. Return if pain recurs Referrals: Physician,Non-Staff, MD [Primary Care Provider] - 1 week
[2024-08-14] VITALS (16 sets, daily range): BP systolic 102–159; BP diastolic 68–102; PULSE 55–66; O2SAT 92–99
[2024-08-14 01:55] LABS: Troponin I High Sensitivity 17.3 pg/mL (4.0-76.1)
== END 2024-08-14 02:36 | disposition home or self-care (01) ==
PROVIDERS: Emergency Provider Internal Medicine
DX: R07.9 Chest pain, unspecified (principal); F17.210 Nicotine dependence, cigarettes, uncomplicated
CPT/HCPCS: 36415; 71045; 80053; 84484; 85025; 93005; 99285

== ENCOUNTER 2024-08-28 11:26 | Emergency (ER) | payer SELFPAY ==
--- OUTSIDE RECORDS SUMMARY | 2024-08-28 11:31 | XMS_ITS | CCD ---
Author Organization [facility] Inform ion Partnership [facility] Care Team Providers Care Investment Underwriter Name Role Phone TAYLOR KESSLER Admitting Unavailable [...] Facility COVID Quick Testingon 2020 Result Positive [facility] Other CARDIAC TAYLOR ADMITon 021 CK [Catalytic activity/Vol] 148 U/L Normal 55-170 [facility] Comment on above: Performed By: #### C LYNDON, CMP #### [facility] [address], [place] [address] Prabha Roz CK.MB [Mass/Vol] 3.41 ng/mL Critically high <=2.37 [facility] Comment on above: Result Comment: test repeated critical value verified Performed By: #### C LYNDON, CMP #### [facility] [address] [place], [place] [id number] Prabha Roz HSTROP 25.5 pg/mL Normal 4.0-42.2 [facility] Comment on above: Result Comment: CUT- OFF POINTS HAVE BEEN ESTABLISHED BASED ON THE FOURTH UNIVERSAL DEFINITIONS OF MYOCARDIAL INFARCTION. THE UPPER REFERENCE LIMIT (URL) OF TROPONIN, DEFINED THE 99TH PERCENTILE OF cTnI DISTRIBUTION IN A REFERENCE POPULATION, HAS BEEN CONFIRMED THE DECISION THRESHOLD FOR [place] DIAGNOSIS. Performed By: #### C LYNDON, CMP #### [facility] [address], [place] [address] Prabha Roz NICOLE 68.0 ng/mL Normal <=121.0 [facility] Comment on above: Performed By: #### C LYNDON, CMP #### [facility] [address], [place] [address] Prabha Roz CBC AUTO DIFFon 07-19-2020 Basophils (Bld) [#/Vol] 0.1 103/ul Normal 0.0-0.1 [facility] Comment on above: Performed By: #### C BC #### [facility] [address], [place] [address] Prabha Roz Basophils/100 WBC (Bld) 0.9 % Normal 0.2-2.0 [facility] Comment on above: Performed By: #### C BC #### [facility] [address] [place] [address] Prabha Orz Eosinophils (Bld) [#/Vol] 0.2 103/ul Normal 0.0-0.7 [facility] Comment on above: Performed By: #### C BC #### [facility] [address] [place], [place] [id number] Prabha Roz Eosinophils/100 WBC (Bld) 3.1 % Normal 0.9-7.0 [facility] Comment on above: Performed By: #### C BC #### [facility] [address] [place] [address] Prabha Roz Erythrocyte distribution width (RBC) [Ratio] 11.4 % Normal 11.0-15.0 [facility] Comment on above: Performed By: #### C BC #### [facility] [address] [place] [address] Prabha Roz Hematocrit (Bld) [Volume fraction] 44.5 % Normal 42.0-54.0 [facility] Comment on above: Performed By: #### C BC #### [facility] [address] [place] [address] Prabha Roz Hemoglobin (Bld) [Mass/Vol] 15.7 g/dL Normal 14.0-18.0 [facility] Comment on above: Performed By: #### C BC #### [facility] [address] [place] [address] Prabha Roz IG # 0.01 10e3/ul Normal 0.00-0.03 [facility] Comment on above: Performed By: #### C BC #### [facility] [address] [place] [address] Prabha Roz IG % 0.1 % Normal 0.0-0.5 [facility] Comment on above: Performed By: #### C BC #### [facility] [address] [place], [place] [id number] Prabha Roz Lymphocytes (Bld) [#/Vol] 1.2 103/ul Normal 1.2-3.8 [facility] Comment on above: Performed By: #### C BC #### [facility] [address], [place] [address] Prabha Roz Lymphocytes/100 WBC (Bld) 17.3 % Critically low 20.5-60.0 [facility] Comment on above: Performed By: #### C BC #### [facility] [address], [place] [address] Prabha Roz MANUAL DIFF REQ NO Normal [facility] Comment on above: Performed By: #### C BC #### [facility] [address], [place] [address] Prabha Roz MCH (RBC) [Entitic mass] 30.6 pg Normal 25.9-34.0 [facility] Comment on above: Performed By: #### C BC #### [facility] [address] [place], [place] [id number] Prabha Roz MCHC (RBC) [Mass/Vol] 35.3 g/dL Critically high 29.9-35.2 [facility] Comment on above: Performed By: #### C BC #### [facility] [address] [place] [address] Prabha Roz MCV (RBC) [Entitic vol] 86.7 fL Normal 80.0-94.0 [facility] Comment on above: Performed By: #### C BC #### [facility] [address] [place] [address] Prabha Roz Monocytes (Bld) [#/Vol] 0.7 103/ul Normal 0.3-0.8 [facility] Comment on above: Performed By: #### C BC #### [facility] [address], [place] [address] Prabha Roz Monocytes/100 WBC (Bld) 10.2 % Normal 1.7-12.0 [facility] Comment on above: Performed By: #### C BC #### [facility] [address], [place] [address] Prabha Roz Neutrophils (Bld) [#/Vol] 4.8 103/ul Normal 1.4-6.5 [facility] Comment on above: Performed By: #### C BC #### [facility] [address], [place] [address] Prabha Courtney Neutrophils/100 WBC (Bld) 68.4 % Normal 43.0-75.0 [facility] Comment on above: Performed By: #### C BC #### [facility] [address], [place] [address] Prabhakamar Courtney Platelet mean volume (Bld) [Entitic vol] 9.6 fL Normal 9.5-13.5 [facility] Comment on above: Performed By: #### C BC #### [facility] [address] [place] [address] Prabhakamar Courtney Platelets (Bld) [#/Vol] 237 103/ul Normal 150-450 [facility] Comment on above: Performed By: #### C BC #### [facility] [address] [place] [address] Prabha Courtney RBC (Bld) [#/Vol] 5.13 106/ul Normal 4.70-6.10 [facility] Comment on above: Performed By: #### C BC #### [facility] [address] [place] [address] Prabha Courtney WBC (Bld) [#/Vol] 7.0 103/ul Normal 4.0-11.0 [facility] Comment on above: Performed By: #### C BC #### [facility] [address] [place] [address] HEAD WO CONon 07-19-2020 [...] JERAD CABRERA Date: 2020-07-19 00:54 Normal [facility] PROF 14(COMP METB)on 021 Albumin [Mass/Vol] 4.1 g/dL Normal 3.5-5.0 [facility] Comment on above: Performed By: #### Lupillo HANEY, CMP #### [facility] [address] [place] [id number] Prabha Roz Albumin/Globulin [Mass ratio] 1.4 {ratio} Normal [facility] Comment on above: Performed By: #### Lupillo HANEY, CMP #### [facility] [address] [place] [id number] Prabha Roz ALP [Catalytic activity/Vol] 99 U/L Normal 38-126 [facility] Comment on above: Performed By: #### Lupillo HANEY, CMP #### [facility] [address] [place] [id number] Prabha Roz ALT [Catalytic activity/Vol] 33 U/L Normal 21-72 [facility] Comment on above: Performed By: #### Lupillo HANEY, CMP #### [facility] [address] [place] [id number] Prabha Roz Anion gap [Moles/Vol] 11.6 mmol/L Normal [facility] Comment on above: Performed By: #### Lupillo HANEY, CMP #### [facility] [address] [place] [id number] Prabha Roz AST [Catalytic activity/Vol] 20 U/L Normal 17-59 [facility] Comment on above: Performed By: #### Lupillo HANEY, CMP #### [facility] [address] [place] [id number] Prabha Roz Bilirubin Ql (U) 0.4 mg/dL Normal 0.2-1.3 [facility] Comment on above: Performed By: #### Lupillo HANEY, CMP #### [facility] [address] [place] [id number] Prabha Roz Calcium [Mass/Vol] 9.2 mg/dL Normal 8.4-10.2 [facility] Comment on above: Performed By: #### C LYNDON, CMP #### [facility] [address] [place] [address] Prabha Roz Chloride [Moles/Vol] 106 mmol/L Normal 98-107 [facility] Comment on above: Performed By: #### C LYNDON, CMP #### [facility] [address] [place] [address] Prabha Roz CO2 [Moles/Vol] 27.4 mmol/L Normal 22.0-30.0 [facility] Comment on above: Performed By: #### C LYNDON, CMP #### [facility] [address] [place] [address] Prabha Roz Creatinine [Mass/Vol] 0.95 mg/dL Normal 0.66-1.25 [facility] Comment on above: Performed By: #### C LYNDON, CMP #### [facility] [address] [place] [address] Prabha Roz EGFR-AF ANGUILLAN >60 Normal >=60 [facility] Comment on above: Performed By: #### C LYNDON, CMP #### [facility] [address] [place] [address] Prabha Roz EGFR-NON AF ANGUILLAN >60 Normal >=60 [facility] Comment on above: Performed By: #### C LYNDON, CMP #### [facility] [address] [place] [address] Prabha Roz Globulin (S) [Mass/Vol] 2.9 g/dL Normal [facility] Comment on above: Performed By: #### C LYNDON, CMP #### [facility] [address] [place] [address] Prabha Roz Glucose [Mass/Vol] 112 mg/dL Critically high 74-106 [facility] Comment on above: Performed By: #### C LYNDON, CMP #### [facility] [address] [place] [address] Prabha Roz Potassium [Moles/Vol] 4.0 mmol/L Normal 3.4-5.0 [facility] Comment on above: Performed By: #### C MADM, CMP #### [facility] [address] [place] [id number] Prabha Roz Protein [Mass/Vol] 7.0 g/dL Normal 6.1-8.2 [facility] Comment on above: Performed By: #### C MADM, CMP #### [facility] [address] [place] [id number] Prabha Roz Sodium [Moles/Vol] 141 mmol/L Normal 137-145 [facility] Comment on above: Performed By: #### C MADM, CMP #### [facility] [address] [place] [id number] Prabha Roz Urea nitrogen [Mass/Vol] 14.0 mg/dL Normal 9.0-20.0 [facility] Comment on above: Performed By: #### C NIKITAM, CMP #### [facility] [address] [place], [place] [address] Prabha Roz Urea nitrogen/Creatinin e [Mass ratio] 14.7 mg/mg Normal [facility] Comment on above: Performed By: #### C MADM, CMP #### [facility] [address] [place], [place] [address] Prabha Roz TROPONIN, HIGH SENSITIVITYon 07-19-2020 HSTROP 21.8 pg/mL Normal 4.0-42.2 [facility] Comment on above: Result Comment: CUT- OFF POINTS HAVE BEEN ESTABLISHED BASED ON THE FOURTH UNIVERSAL DEFINITIONS OF MYOCARDIAL INFARCTION. THE UPPER REFERENCE LIMIT (URL) OF TROPONIN, DEFINED THE 99TH PERCENTILE OF cTnI DISTRIBUTION IN A REFERENCE POPULATION, HAS BEEN CONFIRMED THE DECISION THRESHOLD FOR [place] DIAGNOSIS. Performed By: #### H STROPN #### [facility] [address] [place], [place] [address] Prabha Roz XR CHEST 1 Von 07-19-2020 [...] by: JERAD CABRERA Date: 2020-07-19 00:31 Normal [facility] XR ELBOW RT MIN 3 VIEWSon XR [...] JULIO ALEX Date: 2019-12-15 20:26 Normal [facility] Vital Signs Date Time Vital Sign Value Performing Clinician Facility 08-20-2023 18:13-0400 Body height 172.72 cm [facility] 08-20-2023 18:13-0400 Body mass index (BMI) [Ratio] 26.1 kg/m2 [facility] 08-20-2023 18:13-0400 Body temperature 98.2 [degF] [facility] 08-20-2023 18:13-0400 Body weight 78.01 kg [facility] 08-20-2023 18:13-0400 Heart rate 65 /min [facility] 08-20-2023 18:13-0400 Respiratory rate 18 /min [facility] 08-20-2023 18:13-0400 SaO2% (BldA) [Mass fraction] 97 % [facility] 03-13-2021 16:45-0400 Body height 172.72 cm Darlyn Jeffrey Other [facility] Other 03-13-2021 16:45-0400 Body mass index (BMI) [Ratio] 27.37 kg/m2 Darlyn Jeffrey Other [facility] Other 03-13-2021 16:45-0400 Body temperature 98.7 [degF] Darlyn Jeffrey Other [facility] Other 03-13-2021 16:45-0400 Body weight 81.65 kg Darlyn Jeffrey Other [facility] Other 03-13-2021 16:45-0400 Respiratory rate 18 /min Darlyn Jeffrey Other [facility] Other 03-13-2021 16:45-0400 SaO2% (BldA) [Mass fraction] 98 % Darlyn Jeffrey Other [facility] Other Encounters Encounter Date Encounter Type Care Provider Facility Start: 09-23-2023 End: 09-23-2023 Telephone encounter Catie Latham CMA [facility] Comment on above: Attribution Outreach Start: 08-20-2023 End: 08-20-2023 ambulatory [facility] Work Phone: Start: 08-20-2023 End: 08-20-2023 Patient encounter procedure [facility] Work Phone: Start: 03-13-2021 (URG) Urgent Care Visit Darlyn veliz [facility] Start: 07-19-2020 End: 07-19-2020 Patient encounter procedure TAYLOR KESSLER Facility:[facility] Start: 12-15-2019 End: 12-15-2019 Patient encounter procedure TAYLOR KESSLER Facility:[facility] Plan of Treatment Date Care Activity Detail Author [facility] Payers Date Payer Category Payer Unknown [employer] CHERRIE MONTERROSO [id number] 2017-Present [phone] [address] [place] [address] [id number] 1970 Unknown [id number] 1970 Unknown [id number] 1957 Self-pay Unknown [id number] Social History Date Type Detail Facility Start: 11-10-2018 End: 07-12-2020 Sex Assigned At [facility] Other Start: 08-20-2023 Tobacco smoking status [facility] Smoker (finding) [facility] Start: 1970 Sex Assigned At Male F [facility] Tobacco smoking status [facility] Tobacco smoking consumption unknown [facility] Start: 11-10-2018 End: 07-12-2020 History of Social function [facility] Childcare Unknown [facility] Start: 1970 Sex assigned at Not on file P [facility] Note 09-23-2023 Telephone Encounter - Catie Latham CMA - 09/23/2023 11:17 AM EDT Note Date & Type Note Facility 09-23-2023 Miscellaneous Notes Formattin g of this note might be different from the original. EMPANELMENT OUTREACH Jerald Woodward has been contacted in effort to establish and/or re-establish care as a new patient with [facility]: Yes Outreach Date: September 23, 2023 Outreach Reason: Attribution Outreach Method: Telephone Outreach Attempt: First Attempt Outreach Outcome: Invalid Number New Patient Appointment: NA Attributed Provider: Jael Aguilar CNP Additional Comments: PCP is accepting new patients. Unable to reach patient. Letter sent regarding how to establish care. documented in this encounter [facility] Telephone encounter Note 09-23-2023 Telephone Encounter - Catie Latham CMA - 09/23/2023 11:17 AM EDT Note Date & Type Note Facility 09-23-2023 Telephone encount er Note EMPANELMENT OUTREACH Jerald Woodward has been contacted in effort to establish and/or re-establish [facility] Yes Outreach Date: September 23, 2023 Outreach Reason: Attribution Outreach Method: Telephone Outreach Attempt: First Attempt Outreach Outcome: Invalid Number New Patient Appointment: NA Attributed Provider: Jael Aguilar CNP Additional Comments: PCP is accepting new patients. Unable to reach patient. Letter sent regarding how to establish care. [facility] Evaluation note 03-13-2021 Note Date & [...] Patient care instructions given in writting by [facility] Care At Home document. [facility] Other Evaluation note Note Date & Type Note Facility Evaluation note No assessment information availa [facility] Work Phone: History general Narrative - Reported Note Date & Type Note Facility History general Narrative - Reported Type Medical History pneumonia Hospitalization History pneumonia [facility] Other Instructions Note Date & Type Note Facility Instructions Not on filedocumented in this en counter [facility] Summary Purpose Family History Relationship Condition [...] August 20, 2023 End: August 20, 2023 Investment Underwriter Relationship Specialty Start Date End Date No Pcp[place] [address] PCP - General Family Medicine 07/19/18 Goals [...] BE BASED ON THE PRIMARY CLINICAL RECORDS. [facility] [facility]. provides no warranty or guarantee of the accuracy or completeness of information in this document.
[2024-08-28 11:32] VITALS: BP 162/92; PULSE 72; TEMP 36.4; O2SAT 98; BMI 27.4
--- NOTE | 2024-08-28 11:45 | ECG_ITS ---
[facility] Test Date: 2024-08-28 Pat Name: MACHELLE RUBY Department: Room: - Gender: Male Assurance Sourcing Manager: : 1970 Requested By: [id number] Order Number: [id number] Reading MD: YUMIKO PHILLIPS M.D. Measurements Intervals Chambers Rate: 65 P: 52 MI: 152 QRS: 26 QRSD: 106 T: 28 QT: 382 QTc: 394 Interpretive Statements 1100 Sinus rhythm 1108 Marked sinus arrhythmia 2440 Incomplete right bundle branch block ST DEPRESSION, CONSIDER ISCHEMIA, INF LEADS 9130 borderline ECG Compared to ECG 08/13/2024 22:51:29 Incomplete right bundle-branch block now present Electronically Signed On 08-28-2024 20:18:34 EDT by YUMIKO PHILLIPS M.D.
--- NOTE | 2024-08-28 11:58 | ED.GENADUL1 ---
HPI HPI - General Adult General Chief complaint: Shortness of Breath/Dyspnea Stated complaint: SOB, ABDOMINAL PAIN Time Seen by Provider: 08/28/24 11:35 Source: patient Mode of arrival: walk-in History of Present Illness HPI narrative: 54-year-old male presents for pain in his chest and his back. He states this started about 5:00 this morning when he was outside. He felt like a popping sensation on the left side of his chest and both sides hurt now but more on the left. He did not fall and there was no injury or unusual activity. He has not had a fever or cough. Related Data Previous Rx's ?Medication ?Instructions ?Recorded acetaminophen 300 mg-codeine 30 mg 1 tab PO Q6H PRN pain 5 days #20 08/28/24 tablet tabs ibuprofen 800 mg tablet 800 mg PO Q8H PRN pain #20 tabs 08/28/24 methocarbamol 750 mg tablet 750 mg PO Q6H PRN pain #20 tabs 08/28/24 Allergies Allergy/AdvReac Type Severity Reaction Status Date / Time No Known Drug Allergies Allergy Verified 08/13/24 22:56 Opioid HPI Opioid Management Most Recent Opioid Data: Last Pain Scale 0 08/13/24 23:37 08/13/24 Last MAR Pain Assessment 08/28/24 12:04 Review of Systems ROS Narrative A ten point review of systems is negative except as noted above. [facility] Medical History (Updated 08/28/24 @ 13:57 by Cole Arnold MD) Alcohol abuse ?F10.10 - Alcohol abuse, uncomplicated (ICD-10) Heart attack ?I21.9 - Acute myocardial infarction, unspecified (ICD-10) Tobacco abuse ?Z72.0 - Tobacco use (ICD-10) Family History (Updated 04/22/23 @ 00:33 by Colette Arevalo RN) Mother Family history of myocardial infarction Family history of CHF (congestive heart failure) Family history of hypertension Family history of stroke Social History (Updated 04/22/23 @ 00:36 by Colette Arevalo RN) Within the past year, how often did you have a drink containing alcohol: 4 or more times a week Within the past year, how many standard drinks containing alcohol did you have on a typical day: 5 or 6 Within the past year, how often did you have six or more drinks on one occasion: monthly Total score: 6 Score interpretation: A score of 4 or more indicates drinking is likely to affect patient's safety. Smoking status: Current every day smoker Non-prescribed substance use: cannabis (any form) Previous occupational history: factory Known occupational exposures/hazards details: chemical dust Highest level of school completed/degree received: 10th grade Are you now , , , , never or living with a partner: living with partner In a typical week, how many times do you talk on the telephone with family, friends, or neighbors: 3 or more times per week How often do you get together with friends or relatives: once per week How often do you attend denominational or yazidism services: never Do you belong to any clubs or organizations such as denominational groups unions, fraternal or athletic groups, or school groups: no Total score: 2 Score interpretation: A score of greater than or equal to 2 indicates the lowest level of social isolation. Little interest or pleasure in doing things: not at all Feeling down, depressed, or hopeless: not at all Feel stressed/tense/nervous/anxious/difficulty sleeping: not at all Gender Identity: male Exam Narrative Exam Narrative: Nurses note and vital signs reviewed and patient is not hypoxic. General: The patient appears uncomfortable and in no apparent distress. Skin: Warm, dry, no pallor noted. There is no rash noted. Head: Normocephalic, atraumatic Eye: Normal conjunctiva, no drainage Ears, Nose, Mouth, and Throat: oral mucosa is moist. Nares patent. Cardiovascular: Regular Rate and Rhythm, not tachycardic Respiratory: Patient is in no distress, no accessory muscle use, lungs are clear to auscultation, no wheezing, rales or rhonchi. No crepitus on the chest wall. Back: non-tender GI: Normal bowel sounds, no tenderness to palpation, no masses appreciated. No rebound, guarding, or rigidity noted. Musculoskeletal: The patient has no evidence of calf tenderness, no pitting edema, symmetrical pulses noted bilaterally Neurological: A&O, normal speech Psychiatric: Cooperative Constitutional Vital Signs, click to edit/add: Last Vital Signs Temp 97.5 F L 08/28/24 11:32 Pulse 72 08/28/24 11:32 Resp 28 H 08/28/24 11:32 BP 162/92 H 08/28/24 11:32 Pulse Ox 98 08/28/24 11:32 O2 Del Method Room Air 08/28/24 11:32 Course Vital Signs Vital signs: Vital Signs Temperature 97.5 F L 08/28/24 11:32 Pulse Rate 72 08/28/24 11:32 Respiratory Rate 28 H 08/28/24 11:32 Blood Pressure 162/92 H 08/28/24 11:32 Pulse Oximetry 98 08/28/24 11:32 Oxygen Delivery Method Room Air 08/28/24 11:32 Temperature 97.5 F L 08/28/24 11:32 Pulse Rate 72 08/28/24 11:32 Respiratory Rate 28 H 08/28/24 11:32 Blood Pressure 162/92 H 08/28/24 11:32 Pulse Oximetry 98 08/28/24 11:32 Oxygen Delivery Method Room Air 08/28/24 11:32 Medical Decision Making MDM Narrative Medical decision making narrative: His workup is negative and he is feeling improved after being given IV Toradol and Norflex. At this point I suspect muscle pain. There is no evidence of pneumothorax or acute coronary syndrome and I have no clinical suspicion of pulmonary embolism. He will be discharged home on Tylenol 3 and ibuprofen and Robaxin. Treatment diagnosis and follow-up were discussed with the patient. Differential Diagnosis Differential Diagnosis: Pneumothorax, acute myocardial infarction, rib fracture, pneumothorax Lab Data Lab results reviewed: Yes I reviewed the patient's lab results Labs: Lab Results 08/28/24 Range/Units 12:00 WBC 5.8 (4.0-11.0) 10^3/uL RBC 5.64 (4.70-6.10) 10^6/uL Hgb 17.4 (14.0-18.0) g/dL Hct 48.6 (42.0-54.0) % MCV 86.2 (80.0-94.0) fL MCH 30.9 (25.9-34.0) pg MCHC 35.8 H (29.9-35.2) g/dL RDW 11.6 (11.0-15.0) % Plt Count 235 (150-450) 10^3/uL MPV 9.5 (9.5-13.5) fL Neut % (Auto) 62.6 (43.0-75.0) % Lymph % (Auto) 22.1 (20.5-60.0) % [place] % (Auto) 8.9 (1.7-12.0) % Eos % (Auto) 5.0 (0.9-7.0) % Baso % (Auto) 1.2 (0.2-2.0) % Neut # (Auto) 3.6 (1.4-6.5) 10^3/uL Lymph # (Auto) 1.3 (1.2-3.8) 10^3/uL [place] # (Auto) 0.5 (0.3-0.8) 10^3/uL Eos # (Auto) 0.3 (0.0-0.7) 10^3/uL Baso # (Auto) 0.1 (0.0-0.1) 10^3/uL Abs Immat Gran (auto) 0.01 (0.00-0.03) 10^3/uL Imm/Tot Granulo (auto) 0.2 (0.0-0.5) % Sodium 141 (136-145) mmol/L Potassium 4.1 (3.5-5.1) mmol/L Chloride 105 (98-107) mmol/L Carbon Dioxide 24.9 (21.0-32.0) mmol/L Anion Gap 15.2 BUN 13.0 (7.0-18.0) mg/dL Creatinine 0.97 (0.70-1.30) mg/dL Est GFR ( Amer) >60 (>=60 mL/min/1.73m^2) Est GFR (Non-Af Amer) >60 (>=60 mL/min/1.73m^2) BUN/Creatinine Ratio 13.4 Glucose 109 H (74-106) mg/dL Calcium 9.3 (8.5-10.1) mg/dL Troponin I High Sens 12.8 (4.0-76.1) pg/mL Imaging Data Chest x-ray: Radiologist's impression: No acute process seen in the chest; no pleural effusion or pneumothorax ECG Data Attestation: I personally reviewed and interpreted this ECG as follows: (EKG on my interpretation shows normal sinus rhythm with a rate of 65 and no acute change) Discharge Plan Discharge Chief Complaint: Shortness of Breath/Dyspnea Clinical Impression: Chest wall pain Patient Disposition: Home, Self-Care Time of Disposition Decision: 13:57 Condition: Good Mode of Transportation: Private Vehicle Prescriptions / Home Meds: New acetaminophen-codeine 300-30 mg tablet 1 tab PO Q6H PRN (Reason: pain) 5 Days Qty: 20 0RF ibuprofen 800 mg tablet 800 mg PO Q8H PRN (Reason: pain) Qty: 20 0RF methocarbamol 750 mg tablet 750 mg PO Q6H PRN (Reason: pain) Qty: 20 0RF Print Language: American Instructions: Chest Wall Pain (ED) Referrals: Physician,Non-Staff, MD [Primary Care Provider] - 1 week
[2024-08-28] MEDS: ORPHENADRINE 60 MG/ 2 ML VIAL IV (12:04)
[2024-08-28] MEDS: KETOROLAC TROMETHAMINE 30 MG/ML VIAL IVP (12:04)
[2024-08-28 12:11] LABS: Basophils Absolute Auto 0.1 10^3/uL (0.0-0.1); Basophils Percent Auto 1.2 % (0.2-2.0); Eosinophils Absolute Auto 0.3 10^3/uL (0.0-0.7); Hematocrit 48.6 % (42.0-54.0); Hemoglobin 17.4 g/dL (14.0-18.0); Immature Granulocytes Abs Auto 0.01 10^3/uL (0.00-0.03); Immature Granulocytes Pct Auto 0.2 % (0.0-0.5); Lymphocytes Absolute Auto 1.3 10^3/uL (1.2-3.8); Lymphocytes Percent Auto 22.1 % (20.5-60.0); Mean Corpuscular HGB Conc 35.8 g/dL (29.9-35.2); Mean Corpuscular Hemoglobin 30.9 pg (25.9-34.0); Mean Corpuscular Volume 86.2 fL (80.0-94.0); Mean Platelet Volume 9.5 fL (9.5-13.5); Monocytes Absolute Auto 0.5 10^3/uL (0.3-0.8); Monocytes Percent Auto 8.9 % (1.7-12.0); Neutrophils Absolute Auto 3.6 10^3/uL (1.4-6.5); Neutrophils Percent Auto 62.6 % (43.0-75.0); Platelet Count 235 10^3/uL (150-450); Red Blood Count 5.64 10^6/uL (4.70-6.10); Red Cell Distribution Width 11.6 % (11.0-15.0); White Blood Count 5.8 10^3/uL (4.0-11.0)
[2024-08-28 12:28] LABS: Anion Gap 15.2; BUN Creatinine Ratio 13.4; Calcium 9.3 mg/dL (8.5-10.1); Carbon Dioxide 24.9 mmol/L (21.0-32.0); Chloride 105 mmol/L (98-107); Estimated GFR (African America >60 (>=60 mL/min/1.73m^2); Estimated GFR (Non-African Ame >60 (>=60 mL/min/1.73m^2); Glucose 109 mg/dL (74-106); Potassium 4.1 mmol/L (3.5-5.1); Sodium 141 mmol/L (136-145); Troponin I High Sensitivity 12.8 pg/mL (4.0-76.1)
== END 2024-08-28 14:17 | disposition home or self-care (01) ==
PROVIDERS: Emergency Provider Emergency Medicine
DX: R07.89 Other chest pain (principal); R06.02 Shortness of breath; F17.200 Nicotine dependence, unspecified, uncomplicated
CPT/HCPCS: 36415; 71045; 80048; 84484; 85025; 93005; 96374; 96375; 99285; J1885; J2360